=== PATIENT | female | born 1990 | race Caucasian/White ===

== ENCOUNTER 2016-07-19 21:02 | Emergency (ER) | payer OTHER ==
[~2016-07-19] VITALS: Ht 149.9 cm; Wt 100.0 kg
[~2016-07-19 21:02] MED LIST: FLUC150T48 PO; FLUT9.9S NS; IBUP-1827 PO; MEDR150D9 IM; ONDA4TAB9 PO; TRAM50TA2 PO
[2016-07-19 21:16] VITALS: BP 143/92; PULSE 92; RESP 16; O2SAT 97
--- NOTE | 2016-07-19 21:41 | ED.REPORT ---
HPI-General Illness Date of Service Jul 19, 2016 ED Provider: Everette Vivas MD The patient is a 26 year old female who presents to the ED seeking Tamiflu after being exposed to flu A. She reports that her three children have tested positive for flu A and were prescribed Tamiflu, however her insurance does not cover this and she presents today seeking Tamiflu for her and her children. Associated symptoms include fatigue, fever, nasal congestion, and nausea. She denies any other symptoms at this time. She has had her flu shot. Nursing Notes Stated Complaint: SYMPTONS OF INFLUENZA Chief Complaint: General Complaint Nursing Notes Reviewed: Yes Allergies: Coded Allergies: Penicillins (Verified Allergy, Unknown, 07/06/16) Sulfa (Sulfonamide Antibiotics) (Verified Allergy, Unknown, 07/06/16) latex (Verified Allergy, Unknown, 07/06/16) nitrofurantoin (Verified Allergy, Unknown, 07/06/16) phenazopyridine (Verified Allergy, Unknown, 12/21/15) Scheduled Fluconazole (Diflucan) 150 Mg Tablet 150 MG PO WEEKLY Medroxyprogesterone Acetate (Depo-Provera) 150 Mg/1 Ml Syringe 150 MG IM [id number] Scheduled PRN Fluticasone Propionate (Flonase Allergy Relief) 50 Mcg/Actuation [place].susp 2 SPRAYS NS DAILY PRN PRN allergies Ibuprofen (Ibuprofen) 600 Mg Tablet 600 MG PO QID PRN PRN For Pain Ondansetron ODT (Zofran ODT) 4 Mg Tablet 4 MG PO Q4H PRN PRN For Nausea Tramadol (Tramadol) 50 Mg Tablet 50 MG PO Q4H PRN PRN For Pain General Time Seen by MD: 21:37 Chief Complaint Fever Hx Obtained From: Patient Arrived By: Walk-in Sudden in Onset?: No Onset Occurred: Yesterday Symptom Duration: Since onset Severity: Current: No pain currently Severity: Maximum: No pain Recent Healthcare: No recent doctor visit, No recent hospitalization Similar Sx Previous: No Past Medical History Patient History: Patient reports no known family medical history. 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 Jake at [facility] [employer] [employer] Alcohol Use: Denies alcohol use Drug Use: Denies drug use Other Social History: Good social support, Lives with children, Local resident Ambulatory Status Independent Review of Systems Full Review of Systems Constitutional: Reports: Fatigue, Fever Ears / Nose / Throat: Reports: Nasal congestion Respiratory: Denies: Shortness of breath, Wheezing GI: Reports: Nausea, Denies: Abdominal pain, Vomiting Complete sys rev & neg: except as marked. Physical Exam Vital Signs Vital Signs Date Time Temp Pulse Resp B/P Pulse Ox O2 Delivery O2 Flow Rate FiO2 07/19/16 22:41 36.4 92 16 143/92 97 07/19/16 21:16 36.4 92 16 143/92 97 Initial VS: Reviewed Neck: Supple, Non-tender, Full range of motion Respiratory: Breath sounds normal, Clear to auscultation, No respiratory distress Cardiovascular: Regular rate & rhythm, Heart sounds normal, Intact distal pulses Abdomen / GI: Soft, Non-tender, No guarding, No rebound, No distention Extremities: Vascular intact, Neuro intact, No swelling, No tenderness Skin: Warm, Dry, No cyanosis Neurologic: Alert, Oriented, Nonfocal Psychiatric: Mood/affect normal, Behavior normal, Normal thought content General/Constitutional: Awake, Alert, No acute distress Head / Eyes: Atraumatic, Normocephalic, PERRL, EOMI ENT: Atraumatic, Mucous membranes moist Thick yellow nasal discharge Crusting about the nostrils Re-Eval/Medical Decision Med Decision/Clinical Course 26-year-old mother of three children with test positive influenza A. No risk factors for serious decompensation. Risk benefits alternatives of Tamiflu discusses some length and she is comfortable with routine supportive care. With children for routine care. Source of Hx: Old records Time of Eval: 22:07 Re-Evaluation/Progress Note: Met with patient. Reviewed history and symptoms. Discussed risks and benefits associated with Tamiflu, which the patient has elected to not pursue. Discussed diagnosis and plan for discharge. Follow-up instructions and RTER warnings given. The patient understands and agrees to the plan. All questions addressed. Counseled Regarding: Diagnosis, Need for follow-up, When/why to return to ED Discharge & Departure Primary Impression: Influenza A Disposition: Home Discharge Condition All VS Reviewed: Yes Condition: Stable Patient Instructions: Influenza (ED) Additional Instructions: Tamiflu offers very little in the way of reduction of the burden of influenza. You are likely do well, having received a shot in the first place. The mata features are to maintain hydration, take ibuprofen or senna medicine for aches and fever, and anticipate a seven day course of illness. Your nasal congestion may be helped by the use of Afrin at night only, and only for four nights consecutively. That will help to drain your sinuses. Running a vaporizer in her sleeping room is also helpful, to keep your secretions moist and your membranes from irritation. Follow-up with your doctor Referrals: Catarina Esteves MD (PCP) Scribe Attestation Portions of this note were transcribed by Demetrius Wang. I, Dr. Vivas, personally performed the history, physical exam, and medical decision-making; I reviewed and confirmed the accuracy of the information in the transcribed note. Signed by: Juani Mandel, 07/19/16 22:09. copies to: Catarina Esteves MD, Christopher W MD Jul 19, 2016 21:41 DEMETRIUS WANG Jul 19, 2016 22:08
[2016-07-19 22:41] VITALS: BP 143/92; PULSE 92; RESP 16; O2SAT 97
== END 2016-07-19 22:41 | disposition home or self-care (01) ==
LOC: SED 21:02
DX: J10.1 Influenza due to other identified influenza virus with other respiratory manifestations (principal); R11.0 Nausea; Z88.0 Allergy status to penicillin; Z88.2 Allergy status to sulfonamides; Z88.8 Allergy status to other drugs, medicaments and biological substances; Z91.040 Latex allergy status

== ENCOUNTER 2016-08-21 23:00 | Emergency (ER) | payer OTHER ==
[~2016-08-21] VITALS: Ht 149.9 cm; Wt 109.1 kg
[2016-08-21 23:02] VITALS: BP 130/80; PULSE 108; RESP 16; O2SAT 97
--- NOTE | 2016-08-21 23:21 | ED.REPORT ---
HPI-Trauma Minor / Fall Date of Service Aug 21, 2016 ED Provider: Naa Salas MD 26 y/o female presents to ED complaining of right sided rib pain after the patient fell four steps this evening. Patient reports that she was vacuuming when she fell down a stairway and landed on a hard wood floor on her right side. Her pain is exacerbated by movement and deep breath. She reports limited movement of her right arm due to pain. Patient denies any pain, numbness, or weakness in her arms or legs. Patient admits to hitting her head but denies losing consciousness after fall. However, she states that she feels dizzy and light headed if she stands up too quickly. Patient denies nausea, vomiting, visual changes, shortness of breath, or any other injuries. Nursing Notes Stated Complaint: R SIDE RIB,BACK PAIN Chief Complaint: Multiple Trauma/Fall Nursing Notes Reviewed: Yes Allergies: Coded Allergies: Penicillins (Verified Allergy, Unknown, 08/21/16) Sulfa (Sulfonamide Antibiotics) (Verified Allergy, Unknown, 08/21/16) latex (Verified Allergy, Unknown, 08/21/16) nitrofurantoin (Verified Allergy, Unknown, 08/21/16) phenazopyridine (Verified Allergy, Unknown, 08/21/16) Scheduled Fluconazole (Diflucan) 150 Mg Tablet 150 MG PO WEEKLY Medroxyprogesterone Acetate (Depo-Provera) 150 Mg/1 Ml Syringe 150 MG IM [id number] Scheduled PRN Fluticasone Propionate (Flonase Allergy Relief) 50 Mcg/Actuation [place].susp 2 SPRAYS NS DAILY PRN PRN allergies Hydrocodone-Acetaminophen 5-325 mg (Hydrocodone-Acetaminophen 5-325 mg) 1 Each Tablet 1 TABLET PO Q6H PRN PRN For Pain Ibuprofen (Ibuprofen) 600 Mg Tablet 600 MG PO QID PRN PRN For Pain Ondansetron ODT (Zofran ODT) 4 Mg Tablet 4 MG PO Q4H PRN PRN For Nausea Tramadol (Tramadol) 50 Mg Tablet 50 MG PO Q4H PRN PRN For Pain General Time Seen by : 23:21 Chief Complaint Fall, Other (right rib pain) Hx Obtained From: Patient Arrived By: Walk-in Onset Occurred: Just prior to arrival Symptom Duration: Since onset Caused by: Fall on ground Location: Chest (right ribs) Quality: Painful Severity: Current: Moderate Severity: Maximum: Moderate Exacerbated by: Movement, Deep breath Recent Healthcare: No recent doctor visit, No recent hospitalization Similar Sx Previous: No Past Medical History Patient History: Patient reports no known family medical history. 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 Cardiovascular: Reports: Chest pain (rib pain) GI: Denies: Nausea, Vomiting Physical Exam Initial Vital Signs Vital Signs (First) Date Time Temp Pulse Resp B/P Pulse Ox O2 Delivery O2 Flow Rate FiO2 08/21/16 23:02 36 108 16 130/80 97 Room Air Initial VS: Reviewed, Vital signs abnormal Head / Eyes: Atraumatic, Normocephalic, PERRL ENT: Mucous membranes moist, Conjunctiva normal, No scleral icterus Abdomen / GI: Soft, Non-tender, No guarding, No rebound, No distention Skin: Warm, Dry General/Constitutional: Awake, Alert, Well developed Neck: Atraumatic, No midline vertebral tend Respiratory / Chest: Atraumatic, Breath sounds NL, Breath sounds = bilat, No respiratory distress, No rales, No rhonchi, No wheezing Cardiovascular: Heart rate NL, Regular rhythm, Heart sounds NL, No gallop, No murmurs, No rubs Abdomen: Soft, Non-tender Trauma - Back Specific: Positive: Point tender thoracic... (Spine tender around mid T spine.), Rib tender R nondeformed (Right sided rib pain with palpation.) Upper Extremity / MS: Atraumatic, No deformity Lower Extremity / Pelvis / MS: Atraumatic, No deformity Neurologic: Oriented X3, Speech NL, No motor deficits, No sensory deficits, CN II - XII intact Interpretation & Diagnostics X-Ray Interpretation Xray Interpretation: IMPRESSION: No fracture to ribs. Study Performed: Ribs Xray Interpretation / Wet Read by: Wet read ED physician Xray Interpretation: IMPRESSION: No acute fracture. Study Performed: Thoracic Spine XRay Interpretation / Wet Read by: Wet read ED physician Re-Eval/Medical Decision Med Decision/Clinical Course Patient presents 2 days after trauma, symptoms are concerning for possible rib fracture. No obvious fracture seen on x-ray. She has had some paraspinal tenderness to her mid thoracic area, no abnormalities are seen on her x-ray. The patient states she hit her head but there is no loss of consciousness and she is neurologically intact, she is not a criteria for CT scan. The patient was treated symptomatically was feeling improved upon discharge. A partial list of differential diagnoses considered were intracranial hemorrhage, concussion, rib fracture, pneumothorax, thoracic spinal fracture, and hemothorax. Source of Hx: Old records Re-Evaluation/Progress : Time of Eval: 00:28 Patient Status: Condition improved Re-Evaluation/Progress Note: Explained Xray results and diagnosis to patient. Answered all patient questions. Patient understands and agrees with the plan to be discharged home. Discharge instructions and follow-up discussed. All questions were addressed. Return to the ED warnings given. Counseled Regarding: Diagnosis, Lab results, Need for follow-up, When/why to return to ED Discharge & Departure Impression: Primary Impression: Contusion of rib on right side Encounter type: initial encounter Qualified Code: S20.211A - Contusion of right front wall of thorax, initial encounter Additional Impression: Strain of thoracic spine Encounter type: initial encounter Qualified Code: S29.019A - Strain of muscle and tendon of unspecified wall of thorax, initial encounter Disposition: Home Discharge Condition All VS Reviewed: Yes Condition: Stable Patient Instructions: Contusion (ED) Additional Instructions: You have a right rib contusion and a strain to the spine. Use prescribed pain medication sparingly and feel free to also use ibuprofen to treat for pain. Avoid movements or lifting which exacerbates the pain. Follow up with you primary care physician in 1-2 weeks. Seek care for any new or concerning symptoms. Referrals: Catarina Esteves MD (PCP) Scribe Attestation Portions of this note were transcribed by Arden Upton and Deja Haines. I, Dr. Salas personally performed the history, physical exam and medical decision- making; I reviewed and confirmed the accuracy of the information in the transcribed note. Signed by: Arden Upton and Deja Haines, Mikalaibe, 08/22/2016 and 0121. copies to: Catarina Esteves MD, Jena M MD Aug 21, 2016 23:21 Arden Upton Aug 21, 2016 23:37 Deja Haines Aug 22, 2016 01:21
[2016-08-21] MEDS ORDERED: HYDROcodone-APAP 5-325 mg Tablet PO ONE (23:35)
[2016-08-22] MEDS ORDERED: HYDR-4003 PO (00:14)
[2016-08-22 00:50] VITALS: BP 121/71; PULSE 101; RESP 20; O2SAT 97
--- NOTE | 2016-08-22 08:34 | DRSVH ---
PROCEDURE: X-RAY RIGHT RIBS INCLUDEING PA CHEST, MINUMUM THREE VIEWS ([id number]) INDICATIONS: fall TECHNIQUE: 3 views of the right ribs were acquired, along with a single view chest. COMPARISON: None. FINDINGS: Surgical changes and devices: Cholecystectomy clips. Bones and chest wall: No fractures or dislocations. No suspicious bony lesions. Overlying soft tis sues appear unremarkable. Lungs and pleura: No pleural effusions or pneumothorax. Lungs appear clear. Mediastinum: Mediastinal contours appear normal. Heart size is normal. IMPRESSION: No displaced rib fractures. Dictated by: Reggie Beatty [facility] Interpreted: Ghazal Medina MD on 08/22/2016 at 8:21 Transcribed by: MARIAJOSE on 08/22/2016 at 8:34 Approved by: Ghazal Medina M.D. on 08/22/2016 at 9:02
--- NOTE | 2016-08-22 08:35 | DRSVH ---
PROCEDURE: X-RAY THORACIC SPINE, 2 VIEWS INDICATIONS: fall TECHNIQUE: 3 views of the thoracic spine were acquired. COMPARISON: None. FINDINGS: Bones: No fractures or dislocations. No suspicious bony lesions. 12 pairs of ribs are noted, and a ppear intact where visualized. Minimal S-shaped curvature. Soft tissues: No paravertebral stripe thickening. Cholecystectomy clips. IMPRESSION: No displaced fracture seen. If there is continued pain, followup exam or additional letitia ging such as MRI or CT could be performed for further assessment. Dictated by: Rgegie Beatty RRA Interpreted: Ghazal Medina MD on 08/22/2016 at 8:34 Transcribed by: MARIAJOSE on 08/22/2016 at 8:35 Approved by: Ghazal Medina M.D. on 08/22/2016 at 9:02
== END 2016-08-22 00:51 | disposition home or self-care (01) ==
LOC: SED 23:00
DX: S29.012A Strain of muscle and tendon of back wall of thorax, initial encounter (principal); S20.211A Contusion of right front wall of thorax, initial encounter; W10.9XXA Fall (on) (from) unspecified stairs and steps, initial encounter; Y93.E3 Activity, vacuuming; Y92.89 Other specified places as the place of occurrence of the external cause; Y99.8 Other external cause status; M79.601 Pain in right arm; Z88.0 Allergy status to penicillin; Z88.1 Allergy status to other antibiotic agents; Z88.2 Allergy status to sulfonamides; Z88.6 Allergy status to analgesic agent; Z91.040 Latex allergy status

== ENCOUNTER 2016-09-24 19:54 | Emergency (ER) | payer OTHER ==
[~2016-09-24] VITALS: Ht 151.1 cm; Wt 110.0 kg
[~2016-09-24 19:54] MED LIST changes: +HYDR-4003 PO
[2016-09-24 20:06] VITALS: BP 159/100; PULSE 94; RESP 16; O2SAT 98
--- NOTE | 2016-09-24 21:57 | ED.REPORT ---
HPI-Trauma Minor / Fall Date of Service Sep 24, 2016 ED Provider: Yared Hilton MD Lety Ruiz is a 26 year old woman with a PMH of HTN and obesity who presents with a 1 day history of L shoulder pain radiating up into the neck. She cannot recall a specific injury or trauma to the afflicted limb. She relates that she awoke this morning with pain and discomfort in the shoulder, and then was in the park with her daughter this afternoon and caught her falling from a jungle gym and felt severe pain in her shoulder. She further complains of greatly reduced ROM. Nursing Notes Stated Complaint: HURT SHOULDER,SEVERE PAIN Chief Complaint: Extremity Trauma Nursing Notes Reviewed: Yes Allergies: Coded Allergies: Penicillins (Verified Allergy, Unknown, 09/24/16) Sulfa (Sulfonamide Antibiotics) (Verified Allergy, Unknown, 09/24/16) latex (Verified Allergy, Unknown, 09/24/16) nitrofurantoin (Verified Allergy, Unknown, 09/24/16) phenazopyridine (Verified Allergy, Unknown, 09/24/16) Scheduled Fluconazole (Diflucan) 150 Mg Tablet 150 MG PO WEEKLY Medroxyprogesterone Acetate (Depo-Provera) 150 Mg/1 Ml Syringe 150 MG IM [id number] Scheduled PRN Cyclobenzaprine (Cyclobenzaprine) 5 Mg Tablet 5 MG PO TID PRN PRN Spasm Fluticasone Propionate (Flonase Allergy Relief) 50 Mcg/Actuation [place].susp 2 SPRAYS NS DAILY PRN PRN allergies Hydrocodone-Acetaminophen 5-325 mg (Hydrocodone-Acetaminophen 5-325 mg) 1 Each Tablet 1 TABLET PO Q6H PRN PRN For Pain Ibuprofen (Ibuprofen) 600 Mg Tablet 600 MG PO QID PRN PRN For Pain Ondansetron ODT (Zofran ODT) 4 Mg Tablet 4 MG PO Q4H PRN PRN For Nausea Tramadol (Tramadol) 50 Mg Tablet 50 MG PO Q4H PRN PRN For Pain General Time Seen by MD: 22:00 Chief Complaint Extremity pain Hx Obtained From: Patient Onset Occurred: 9 - 12 hours ago Symptom Duration: Since onset Location: Shoulder left Quality: Aching, Sharp Severity: Current: Moderate Severity: Maximum: Severe Recent Healthcare: Recent doctor visit Similar Sx Previous: No Past Medical History Patient History: Patient reports no known family medical history. 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 [employer] Alcohol Use: Denies alcohol use Drug Use: Denies drug use Other Social History: Good social support, Lives with children, Local resident Ambulatory Status Independent Review of Systems Musculoskeletal: Reports: Extremity pain, Joint pain Physical Exam Gen: A/O x3 pleasant cooperative obese woman in mild acute distress secondary to L shoulder pain Neck: Tender to palpation along SCM, Limited rotation to the left, no thyromegally HEENT: PERRL, EOMI, no scleral icterus, no conjunctival pallor CV: RRR, very slight diastolic murmur best heard at right sternal border Resp: Lungs CTA BL, no wheezing rales or rhonchi Abdomen: Obese, soft, non tender Extr: Greatly reduced ROM of L shoulder with 15 degrees of abduction, 30 degrees or flexion, very little internal rotation, tender to palpation along superior margin of deltoid, at bicipital tendon insertion, and along suprascapular ridge. Patient unable to do special testing due to pain and reduced ROM, no cyanosis clubbing or edema, neurovascularly intract Neuro: CN 2-12 grossly intact, no focal neurologic deficit. Initial Vital Signs Vital Signs (First) Date Time Temp Pulse Resp B/P Pulse Ox O2 Delivery O2 Flow Rate FiO2 09/24/16 20:06 37.1 94 16 159/100 98 Room Air Initial VS: Reviewed, Vital signs abnormal Re-Eval/Medical Decision Med Decision/Clinical Course Patient's ECG unremarkable, pain appears to be musculoskeletal in origin. Very limited ROM and tenderness to palpation at multiple soft tissue structures. Patient unable to complete specialized testing due to pain and reduced ROM. Given Toradol for pain 30 mg x2 plus 10 mg of Cyclobenziprine which improved symptoms. Patient was given follow up instructions and return precautions prior to DC. APRYL report consulted which showed minimal opiate history. Counseled Regarding: Diagnosis, Need for follow-up, When/why to return to ED Discharge & Departure Shift Change Sign-Out Patient Care Transferred: No Discussed Complaint(s): Yes Imaging Studies: Imaging discussed Response to Therapy: Improved Impression: Primary Impression: Left shoulder strain Encounter type: initial encounter Qualified Code: S46.912A - Strain of unspecified muscle, fascia and tendon at shoulder and upper arm level, left arm , initial encounter Disposition: Home Discharge Condition All VS Reviewed: Yes Condition: Stable Patient Instructions: Shoulder Sprain (ED) Additional Instructions: You have most likely strained one of the muscular structures in your shoulder, at this time in the acute phase of the injury we cannot definitively identify exactly where your injury occurred. We suggest using ice and or heat and ibuprofen or Motrin for pain. You should follow up with your primary care provider for further evaluation if the pain fails to improve over the course of the week. Referrals: Catarina Esteves MD (PCP) Attending Statement The patient was seen and examined together with Dr. Kentrell Boyce and I agree with the history, exam and plan as outlined in the note above. copies to: Catarina Esteves MD, David E DO Sep 24, 2016 21:57 Yared Hilton MD Sep 25, 2016 03:42
[2016-09-24] MEDS ORDERED: CYCL5TAB PO (23:21)
[2016-09-24] MEDS ORDERED: _HYDROcodone/APAP 5-325 mg Tablet PO PRN (23:25)
[2016-09-24] MEDS ORDERED: HYDROcodone-APAP 5-325 mg Tablet PO ONE (23:25)
[2016-09-25 00:04] VITALS: BP 136/86; PULSE 92; RESP 20; O2SAT 98
== END 2016-09-25 00:05 | disposition home or self-care (01) ==
LOC: SED 19:54
DX: S46.912A Strain of unspecified muscle, fascia and tendon at shoulder and upper arm level, left arm, initial encounter (principal); X50.9XXA Other and unspecified overexertion or strenuous movements or postures, initial encounter; Y93.89 Activity, other specified; Y92.89 Other specified places as the place of occurrence of the external cause; Y99.8 Other external cause status; Z88.0 Allergy status to penicillin; Z88.2 Allergy status to sulfonamides; Z88.8 Allergy status to other drugs, medicaments and biological substances; Z91.040 Latex allergy status
CPT/HCPCS: 93005; 96372; 99284; J1885

== ENCOUNTER 2016-11-06 22:12 | Emergency (ER) | payer OTHER ==
[~2016-11-06] VITALS: Ht 149.9 cm; Wt 113.4 kg
[~2016-11-06 22:12] MED LIST changes: +CYCL5TAB PO
[2016-11-06 22:14] VITALS: BP 162/109; PULSE 88; RESP 16; O2SAT 96
--- NOTE | 2016-11-06 23:19 | ED.REPORT ---
HPI-Extremity Problem Upper Date of Service November 06, 2016 ED Provider: Camden Munguia MD A 26 year old female with a medical history including DVT and left knee Baltazar's cyst presents to the ED with left second finger pain onset one week ago. The patient "jammed" this finger months ago, an injury which was initially painful but eventually healed. Now the pain has returned along with generalized swelling and a hard "bump" on her middle phalanx. The patient denies other symptoms. Nursing Notes Stated Complaint: LUMP LEFT INDEX FINGER Chief Complaint: Extremity Trauma Nursing Notes Reviewed: Yes ([employer], [employer] not reconciled) Allergies: Coded Allergies: Penicillins (Verified Allergy, Unknown, 11/06/16) Sulfa (Sulfonamide Antibiotics) (Verified Allergy, Unknown, 11/06/16) latex (Verified Allergy, Unknown, 11/06/16) nitrofurantoin (Verified Allergy, Unknown, 11/06/16) phenazopyridine (Verified Allergy, Unknown, 11/06/16) Scheduled Fluconazole (Diflucan) 150 Mg Tablet 150 MG PO WEEKLY Medroxyprogesterone Acetate (Depo-Provera) 150 Mg/1 Ml Syringe 150 MG IM [id number] Scheduled PRN Cyclobenzaprine (Cyclobenzaprine) 5 Mg Tablet 5 MG PO TID PRN PRN Spasm Fluticasone Propionate (Flonase Allergy Relief) 50 Mcg/Actuation [place].susp 2 SPRAYS NS DAILY PRN PRN allergies Hydrocodone-Acetaminophen 5-325 mg (Hydrocodone-Acetaminophen 5-325 mg) 1 Each Tablet 1 TABLET PO Q6H PRN PRN For Pain Hydrocodone-Acetaminophen 5-325 mg (Hydrocodone-Acetaminophen 5-325 mg) 1 Each Tablet 1-2 TABLET PO Q6H PRN PRN For Pain Ibuprofen (Ibuprofen) 600 Mg Tablet 600 MG PO QID PRN PRN For Pain Ondansetron ODT (Zofran ODT) 4 Mg Tablet 4 MG PO Q4H PRN PRN For Nausea Tramadol (Tramadol) 50 Mg Tablet 50 MG PO Q4H PRN PRN For Pain General Time Seen by MD: 23:17 Chief Complaint Finger injury left 2 Hx Obtained From: Patient Arrived By: Walk-in Onset Occurred: 1 week ago (Intial injury months ago) Symptom Duration: Since onset Location: : Finger left 2 Quality: Painful Severity: Current: Moderate Severity: Maximum: Moderate Pertinent Negative: Relieved by nothing Immunizations: Tetanus up to date Recent Healthcare: No recent doctor visit Past Medical History Patient History: Patient reports no known family medical history. 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 Respiratory: Denies: Non-productive cough, Shortness of breath GI: Denies: Diarrhea, Vomiting Physical Exam Physical Exam Notes: f Initial Vital Signs Vital Signs (First) Date Time Temp Pulse Resp B/P Pulse Ox O2 Delivery O2 Flow Rate FiO2 11/06/16 22:14 36.6 88 16 162/109 96 Room Air Initial VS: Reviewed, Vital signs normal Head / Eyes: Atraumatic, Normocephalic ENT: Conjunctiva normal, No scleral icterus Neck: Supple, Full range of motion Respiratory: No respiratory distress Skin: Warm, Dry Neurologic: Alert, Oriented, Nonfocal Psychiatric: Mood/affect normal, Behavior normal, Normal thought content General/Constitutional: Awake, Alert Wrist / Hand: Neurologic intact, Vascular intact, Tendon function NL Finger Exam : Finger Exam: Positive: Ecchymosis present, Finger name... (L index), Swelling present... (Mild, more pronounced around DIP joint), Negative: Warmth present Good cap refill No signs of infection or cellulitis Firmness on lateral aspect of left index finger that could be an early developing ganglion cyst but exam findings are not definitive Passive ROM of left index finger normal Flexion of left index finger limited due to swelling Normal extension of left index finger Normal flexion of profundus and superficialis without tendon injury Interpretation & Diagnostics X-Ray Interpretation Xray Interpretation: No fracture Study Performed: Fingers, 2 View X-Ray Ordered: Hand left Interpretation / Wet Read by: Wet read ED physician Re-Eval/Medical Decision Med Decision/Clinical Course This is a 26-year-old right-hand dominant female 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 This is swelling, and may be a lump, near the DIP joint of the left index finger. She denies numbness weakness paresthesias. She has had a previous injury to that hand, no surgical interventions previously. On exam she generally appears well. There is a little bit of swelling, even some ecchymosis seems to be mostly around the DIP joint, I do not impression much swelling around the PIP joint. There is intact flexion, intact extension, no weakness of the profundus and superficialis is evident. Plain radiographs are negative for fracture or avulsion injury. The intrinsics function appear intact. I cannot tell if there might be a small developing ganglion cyst at the level of the DIP joint, but it is not definitive on exam. At this point smelling measures are indicated. Epistaxis splint was provided. Some beer and pain medicines. The patient follow up with her PCP for management Source of Hx: Old records Re-Evaluation/Progress : Time of Eval: 23:34 Patient Status: Condition improved Re-Evaluation/Progress Note: Discussed with patient x-ray results, diagnosis, and plan for discharge. Follow-up and return to the ER instructions given. Patient agrees with plan for care and all questions were addressed. Differential Diagnosis: Negative: Avulsion injury, Cellulitis, Compartment syndrome, Deep vein thrombosis, Elbow fracture, Fracture, Gamekeepers thumb, Hematoma, Nail bed laceration, Open fracture Counseled Regarding: Diagnosis, Need for follow-up, When/why to return to ED Discharge & Departure Impression: Primary Impression: Injury of left index finger Encounter type: initial encounter Qualified Code: S69.92XA - Unspecified injury of left wrist, hand and finger(s), initial encounter Disposition: Home Discharge Condition All VS Reviewed: Yes Condition: Improved Additional Instructions: 1. No fracture, dislocation, or sublexation was appreciated on Xray indicating a soft tissue injury. 2. It is possible, but not definite, that you could be developing a small ganglion cyst at the DIP joint. There is no intervention available in the ED and the general approach is physical therapy and re-evaluation. If the area is swelling or enlarging further, MRI imaging may be indicated. 3. Use a stack splint for comfort. 4. Take ibuprofen 400-800mg three times a day for pain. 5. If needed for more severe pain take hydrocodone/APAP 5/325 1-2 tabs up to every 6-8 hours. Note: This medication contains narcotic and causes drowsiness , no driving for at least 4 hours after taking. Use sparingly. 6. Call tomorrow to schedule a follow up with Dr. Willson. Referrals: Braeden Willson MD (PCP) Scribe Attestation Portions of this note were transcribed by Karen Carlson. I, Dr. Munguia, personally performed the history, physical exam, and medical decision-making; I reviewed and confirmed the accuracy of the information in the transcribed note. Signed by: Juani Noel, 11/06/2016, 23:45 copies to: Braeden Willson MD, Matthew F MD November 06, 2016 23:19 KAREN CARLSON November 06, 2016 23:27
[2016-11-06] MEDS ORDERED: HYDROcodone-APAP 5-325 mg Tablet PO ONE (23:30)
[2016-11-06] MEDS ORDERED: HYDR-4003 PO (23:35)
[2016-11-07 00:27] VITALS: BP 150/90; PULSE 82; RESP 17; O2SAT 97
--- NOTE | 2016-11-07 08:54 | DRSVH ---
PROCEDURE: X-RAY FINGERS, TWO VIEWS INDICATIONS: Finger pain TECHNIQUE: AP hand, 2 views of the second finger(s) acquired. COMPARISON: None. FINDINGS: Bones: No fractures or dislocations. No suspicious bony lesions. Soft tissues: No suspicious soft tissue calcifications. Diffuse soft tissue swelling. IMPRESSION: No displaced fracture seen. If there is continued pain, followup exam or additional letitia ging such as MRI or CT could be performed for further assessment. Dictated by: Reggie Beatty RRA Interpreted: Josh Valentine MD on 11/07/2016 at 8:53 Transcribed by: GENESIS on 11/07/2016 at 8:54 Approved by: Josh Valentine M.D. on 11/07/2016 at 9:42
== END 2016-11-07 00:15 | disposition home or self-care (01) ==
LOC: SED 22:12
DX: S69.82XA Other specified injuries of left wrist, hand and finger(s), initial encounter (principal); W23.1XXA Caught, crushed, jammed, or pinched between stationary objects, initial encounter; Y93.89 Activity, other specified; Y92.89 Other specified places as the place of occurrence of the external cause; Y99.8 Other external cause status; Z88.0 Allergy status to penicillin; Z88.2 Allergy status to sulfonamides; Z88.8 Allergy status to other drugs, medicaments and biological substances; Z91.040 Latex allergy status

== ENCOUNTER 2017-01-27 19:56 | Emergency (ER) | payer OTHER ==
[~2017-01-27] VITALS: Ht 149.9 cm; Wt 100.0 kg
[2017-01-27 19:59] VITALS: BP 166/102; PULSE 94; RESP 18; O2SAT 97
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
[2017-01-27 22:18] LABS: BASOPHILS % (AUTO) 0.2 % (0-3); EOSINOPHILS % (AUTO) 2.3 % (0-5); MONOCYTES % (AUTO) 8.1 % (4-12); Mean Corpuscular Hemoglobin 27.2 pg (27.0-35.0); Mean Corpuscular Volume 80.1 fL (81-100); NEUTROPHILS % (AUTO) 64.5 % (40-74); Platelet Count 249 bil/L (150-400)
[2017-01-27 22:35] LABS: Magnesium 2.1 mg/dL (1.6-2.6)
[2017-01-27] MEDS ORDERED: CEPH-512 PO (23:15)
[2017-01-27 23:18] VITALS: BP 145/93; PULSE 79; RESP 18; O2SAT 95
== END 2017-01-27 23:18 | disposition home or self-care (01) ==
LOC: SED 19:56
DX: S39.81XA Other specified injuries of abdomen, initial encounter (principal); W50.1XXA Accidental kick by another person, initial encounter; Y93.89 Activity, other specified; Y92.89 Other specified places as the place of occurrence of the external cause; Y99.8 Other external cause status; N39.0 Urinary tract infection, site not specified; Z87.440 Personal history of urinary (tract) infections; Z98.890 Other specified postprocedural states; Z90.49 Acquired absence of other specified parts of digestive tract; Z88.0 Allergy status to penicillin; Z88.1 Allergy status to other antibiotic agents; Z88.2 Allergy status to sulfonamides; Z88.6 Allergy status to analgesic agent; Z91.040 Latex allergy status
CPT/HCPCS: 36415; 80053; 81025; 83690; 83735; 85025; 96372; 99284; J1885

== ENCOUNTER 2017-02-12 11:45 | Emergency (ER) | payer OTHER ==
[~2017-02-12] VITALS: Ht 149.9 cm; Wt 104.5 kg
[~2017-02-12 11:45] MED LIST changes: +CEPH-512 PO
[2017-02-12 11:52] VITALS: BP 142/87; PULSE 86; RESP 17; O2SAT 98
--- NOTE | 2017-02-12 12:02 | ED.REPORT ---
HPI-Preg Under 20 Weeks Date of Service Feb 12, 2017 ED Provider: Merced Ocasio History of Present Illness: LMP 7/3 small amount bright red bleeding this am. RH negative. deejay is primary care and OB. . Found out about 1 week ago she was . ongoing nausea 4th . denies sexual activity last evening. denies pain Nursing Notes Stated Complaint: POSS MISCARRIAGE Chief Complaint: Female Abdominal Pain Nursing Notes Reviewed: Yes Allergies: Coded Allergies: Penicillins (Verified Allergy, Unknown, 01/27/17) Sulfa (Sulfonamide Antibiotics) (Verified Allergy, Unknown, 01/27/17) latex (Verified Allergy, Unknown, 01/27/17) nitrofurantoin (Verified Allergy, Unknown, 01/27/17) phenazopyridine (Verified Allergy, Unknown, 01/27/17) Scheduled Cephalexin (Keflex) 500 Mg Capsule 500 MG PO QID Fluconazole (Diflucan) 150 Mg Tablet 150 MG PO WEEKLY Medroxyprogesterone Acetate (Depo-Provera) 150 Mg/1 Ml Syringe 150 MG IM [id number] Scheduled PRN Cyclobenzaprine (Cyclobenzaprine) 5 Mg Tablet 5 MG PO TID PRN PRN Spasm Fluticasone Propionate (Flonase Allergy Relief) 50 Mcg/Actuation [place].susp 2 SPRAYS NS DAILY PRN PRN allergies Hydrocodone-Acetaminophen 5-325 mg (Hydrocodone-Acetaminophen 5-325 mg) 1 Each Tablet 1 TABLET PO Q6H PRN PRN For Pain Hydrocodone-Acetaminophen 5-325 mg (Hydrocodone-Acetaminophen 5-325 mg) 1 Each Tablet 1-2 TABLET PO Q6H PRN PRN For Pain Ibuprofen (Ibuprofen) 600 Mg Tablet 600 MG PO QID PRN PRN For Pain Ondansetron ODT (Zofran ODT) 4 Mg Tablet 4 MG PO Q4H PRN PRN For Nausea Tramadol (Tramadol) 50 Mg Tablet 50 MG PO Q4H PRN PRN For Pain General Time Seen by Provider: 12:00 Chief Complaint Vaginal bleeding, Other (small amount of breight red bleeding which has now stopped) Hx Obtained From: Patient Past Medical History Patient History: Patient reports no known family medical history. 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[employer] Alcohol Use: Denies alcohol use Drug Use: Denies drug use Other Social History: Good social support, Lives with children, Local resident Occupation lives with partner Ambulatory Status Independent Review of Systems Basic Review of Systems ENT: Hearing NL, No pain, No nasal congestion, No pharyngeal pain Psychiatric: Normal thought content Physical Exam Initial Vital Signs Vital Signs (First) Date Time Temp Pulse Resp B/P Pulse Ox O2 Delivery O2 Flow Rate FiO2 02/12/17 11:52 37.2 86 17 142/87 98 Room Air Initial VS: Reviewed, Vital signs normal Head / Eyes: Atraumatic, Normocephalic, PERRL ENT: Mucous membranes moist, Conjunctiva normal, No scleral icterus Neck: Supple, Non-tender, Full range of motion Respiratory: Breath sounds normal, Clear to auscultation, No respiratory distress Cardiovascular: Regular rate & rhythm, Heart sounds normal, Intact distal pulses Back: No CVA tenderness Lymphatic: No lymphadenopathy Extremities: Vascular intact, Neuro intact, No swelling, No tenderness Skin: Warm, Dry, No cyanosis Neurologic: Alert, Oriented, Nonfocal Psychiatric: Mood/affect normal, Behavior normal, Normal thought content General/Constitutional: Awake, Alert, No acute distress, Well appearing, Well developed, Well hydrated, Well nourished, Cooperative, Not toxic appearing Appearance / Presentation: Positive: Obese, morbidly Abdomen: Atraumatic, Soft, Non-tender, McBurney's non-tender, No guarding, No rebound, BS normoactive, No distention Female Genitourinary: Patient refused exam (states every time she has an exam she gets an infection) : Patient refused exam Respiratory / Chest: Atraumatic, Breath sounds NL, Breath sounds = bilat, No respiratory distress, No rales, No rhonchi, No wheezing, No retractions, No stridor, No chest tenderness, No chest wall deformity Cardiovascular: Heart rate NL, Regular rhythm, Heart sounds NL, No gallop, No murmurs, No rubs Interpretation & Diagnostics Lab Results Interpretation Result Diagram: 02/12/17 1158 02/12/17 1158 Test 02/12/17 11:58 02/12/17 12:33 02/12/17 15:21 White Blood Count 10.2th/mm3 (3.8-10.1) Red Blood Count 4.73mil/mm3 (3.90-5.20) Hemoglobin 13.1g/dL (12.0-15.6) Hematocrit 38.4% (35.0-46.0) Mean Corpuscular Volume 81.2fL (81-100) Mean Corpuscular Hemoglobin 27.7pg (27.0-35.0) Mean Corpuscular Hemoglobin Concent 34.1% (32.0-37.0) Red Cell Distribution Width 14.1% (12.3-15.4) Platelet Count 255bil/L (150-400) Neutrophils (%) (Auto) 70.3% (40-74) Lymphocytes (%) (Auto) 19.5% (14-46) Monocytes (%) (Auto) 7.9% (4-12) Eosinophils (%) (Auto) 1.8% (0-5) Basophils (%) (Auto) 0.2% (0-3) Sodium Level 138mEq/L (134-144) Potassium Level 4.3mEq/L (3.5-5.2) Chloride Level 101mEq/L (97-108) Carbon Dioxide Level 20mmol/L (18-29) Blood Urea Nitrogen 7mg/dL (6-20) Creatinine 0.50mg/dL (0.57-1.00) Estimat Glomerular Filtration Rate 212mL/min (>59) Glucose Level 109mg/dL (60-99) Calcium Level 8.9mg/dL (8.5-10.1) Total Bilirubin 0.3mg/dL (0.0-1.2) Aspartate Amino Transf (AST/SGOT) 26U/L (0-50) Alanine Aminotransferase (ALT/SGPT) 36U/L (0-32) Alkaline Phosphatase 74U/L (25-150) Total Protein 7.0g/dL (6.4-8.4) Albumin 4.2g/dL (3.4-5.0) HCG Beta Subunit 1915mIU/mL Urine Color Bloody (YELLOW) Urine Appearance Cloudy (CLEAR,HAZY) Urine pH 6.0 (5.0-8.0) Urine Specific [place] 1.015 (1.003-1.035) Urine Protein 100mg/dL (NEG,TRACE) Urine Glucose (UA) Negativemg/dL (NEGATIVE) Urine Ketones Negativemg/dL (NEGATIVE) Urine Occult Blood Large (NEGATIVE) Urine Nitrite Negative (NEGATIVE) Urine Bilirubin Negative (NEGATIVE) Urine Urobilinogen Normalmg/dL (NORMAL) Urine Leukocyte Esterase Trace (NEGATIVE) Urine RBC Packed/hpf (0-2) Urine WBC 0-5/hpf (0-5) Urine Epithelial Cells Occasional/hpf (NONE-MOD) Urine Crystals None seen (NONE SEEN) Urine Bacteria None/hpf (NONE-FEW) Urine Hyaline Casts None/lpf (NONE) Urine Granular Casts None seen (NONE SEEN) Urine Waxy Casts None seen (NONE SEEN) Urine Red Blood Cell Casts None seen (NONE SEEN) Urine White Blood Cell Casts None seen (NONE SEEN) Urine Mucus None seen (None Seen) Urine Trichomonas None seen (NONE SEEN) Urine Yeast None (NONE SEEN) Urinalysis Comment None Urine Culture Reflexed Indicated US Focused OB PROCEDURE: US OB<14 WKS+OB TRANSVAG INDICATIONS: bleeding OUTSIDE/PRIOR DATING DATA: Last menstrual period (LMP): 01/06/17. First dating scan (date and location): 02/12/17, this study. Estimated date of delivery (SCOTTY) from first dating scan: 10/13/17, plus or -7 days, based on this study and measurement of the gestational sac only. TECHNIQUE: Real-time scanning was performed of the fetus and maternal pelvic organs, with image documentation. Endovaginal scanning was also performed to better visualize the fetus and maternal ovaries. COMPARISON: None. FINDINGS: Embryo: Not seen but the gestational sac in the endometrial space has a mean sac diameter of 5 mm that correlates with a gestational age estimate of 5 weeks 2 days, plus or -7 days Measurement variability in dating: +/- 4 weeks by LMP, +/- 7 days by mean sac diameter (use before 6 weeks gestation if crown-rump length not able to be measured), +/- 5 days by crown-rump length (up to 8 weeks 6 days gestation), +/- 7 days by crown-rump length (up to 13 weeks 6 days gestation). Maternal organs: Ovaries appear normal considering gestational status. Limited images through the kidneys demonstrate no hydronephrosis. IMPRESSION: Estimated 5 week 2 day gestational age with delivery date ejected to be centered on 10/13/17+ or -7 days assuming viable gestation. Followup anatomic survey at 22 weeks gestation is recommended. Dictated by: Dandre Cosby M.D. on 02/12/2017 at 13:55 Approved by: Dandre Cosby M.D. on 02/12/2017 at 13:57 Re-Eval/Medical Decision Med Decision/Clinical Course 26 year old female with episode of breight red vaginal bleeding this am that has since stopped. Patient denies pain. US does not provide any answers. No sign of etopic. US shows 5 week Discharge & Departure Primary Impression: Weeks of gestation: less than 8 weeks Qualified Code: Z3A.01 - Less than 8 weeks gestation of Additional Impressions: Vaginal bleeding Urinary tract infection Urinary tract infection type: acute cystitis Hematuria presence: with hematuria Qualified Code: N30.01 - Acute cystitis with hematuria Disposition: Home Patient Instructions: First Trimester (ED), First Trimester Vaginal Bleed (ED), (ED), Urinary Tract Infection in (ED) Additional Instructions: Your hormone is 1915. The ultrasound shows there is a sac but there is no heart beat. It is too early to tell if this will continue on or wether this is a pseudosac. Because your are RH negative you are being provided the mini rhogam. Please follow with Dr. Celaya in the next week or two to have a repeat HCG. This will help provide some answers. The urine does show sign of infection. Start keflex 500 mg in the am and pm for 7 days. Also vitamins should be started. Referrals: Braeden Willson MD (PCP) EDSupervising Provider for APC: Rishi Smith MD copies to: Braeden Willson MD, Sue ARNP Feb 12, 2017 12:02
[2017-02-12 12:15] LABS: BASOPHILS % (AUTO) 0.2 % (0-3); EOSINOPHILS % (AUTO) 1.8 % (0-5); MONOCYTES % (AUTO) 7.9 % (4-12); Mean Corpuscular Hemoglobin 27.7 pg (27.0-35.0); Mean Corpuscular Volume 81.2 fL (81-100); NEUTROPHILS % (AUTO) 70.3 % (40-74); Platelet Count 255 bil/L (150-400)
[2017-02-12] MEDS ORDERED: Rho(D) Immune Globulin 50 mCg Syringe IM ONE (13:40)
--- NOTE | 2017-02-12 13:59 | DRSVH ---
PROCEDURE: US OB<14 WKS+OB TRANSVAG INDICATIONS: bleeding OUTSIDE/PRIOR DATING DATA: Last menstrual period (LMP): 01/06/17. First dating scan (date and location): 02/12/17, this study. Estimated date of delivery (SCOTTY) from first dating scan: 10/13/17, plus or -7 days, based on this study and measurement of the gestational sac only. TECHNIQUE: Real-time scanning was performed of the fetus and maternal pelvic organs, with image documentation. Endovaginal scanning was also performed to better visualize the fetus and maternal ovaries. COMPARISON: None. FINDINGS: Embryo: Not seen but the gestational sac in the endometrial space has a mean sac diameter of 5 mm marina t correlates with a gestational age estimate of 5 weeks 2 days, plus or -7 days Measurement variability in dating: +/- 4 weeks by LMP, +/- 7 days by mean sac diameter (use before 6 weeks gestation if crown-rump length not able to be measured), +/- 5 days by crown-rump length (up t o 8 weeks 6 days gestation), +/- 7 days by crown-rump length (up to 13 weeks 6 days gestation). Maternal organs: Ovaries appear normal considering gestational status. Limited images through the k idneys demonstrate no hydronephrosis. IMPRESSION: Estimated 5 week 2 day gestational age with delivery date ejected to be centered on 8+ or -7 days assuming viable gestation. Followup anatomic survey at 22 weeks gestation is rec ommended. Dictated by: Dandre Cosby M.D. on 02/12/2017 at 13:55 Approved by: Dandre Cosby M.D. on 02/12/2017 at 13:57
[2017-02-12 14:44] VITALS: BP 185/98; PULSE 98; RESP 20; O2SAT 99
[2017-02-12 15:35] LABS: APPEARANCE,URINE CLOUDY (CLEAR,HAZY); COLOR,URINE BLOODY (YELLOW)
[2017-02-12 15:36] LABS: OCCULT BLOOD,URINE LARGE (NEGATIVE); UROBILINOGEN,URINE NORMAL (NORMAL)
== END 2017-02-12 14:30 | disposition home or self-care (01) ==
LOC: SED 11:45
DX: O20.8 Other hemorrhage in early pregnancy (principal); O23.11 Infections of bladder in pregnancy, first trimester; Z87.440 Personal history of urinary (tract) infections; Z3A.01 Less than 8 weeks gestation of pregnancy; Z86.718 Personal history of other venous thrombosis and embolism; Z90.49 Acquired absence of other specified parts of digestive tract; Z91.040 Latex allergy status; Z88.2 Allergy status to sulfonamides; Z88.8 Allergy status to other drugs, medicaments and biological substances; Z88.0 Allergy status to penicillin
CPT/HCPCS: 36415; 76801; 76817; 80053; 81000; 81025; 84702; 85025; 87086; 87088; 87491; 87591; 96372; 99285; J2788

== ENCOUNTER 2017-02-17 01:36 | Emergency (ER) | payer OTHER ==
[~2017-02-17] VITALS: Ht 149.9 cm; Wt 109.1 kg
[2017-02-17 01:40] VITALS: BP 175/106; RESP 18; O2SAT 96
--- NOTE | 2017-02-17 01:45 | ED.REPORT ---
HPI-Ear Pain/Problem/FB Date of Service Feb 17, 2017 ED Provider: Dr. Mahmood Pt is a 26 year old female who is 3 weeks with a hx of ear infections presenting to the ED complaining of pain to her right ear onset 4 days ago. She also reports some drainage and fever. She states that this feels similar to her previous episodes of ear infections. Denies nausea, vomiting, diarrhea, or SOB. Nursing Notes Stated Complaint: EAR PAIN Chief Complaint: ENT & Mouth Nursing Notes Reviewed: Yes Allergies: Coded Allergies: Penicillins (Verified Allergy, Unknown, 02/17/17) Sulfa (Sulfonamide Antibiotics) (Verified Allergy, Unknown, 02/17/17) latex (Verified Allergy, Unknown, 02/17/17) nitrofurantoin (Verified Allergy, Unknown, 02/17/17) phenazopyridine (Verified Allergy, Unknown, 02/17/17) Scheduled Cephalexin (Keflex) 500 Mg Capsule 500 MG PO QID Fluconazole (Diflucan) 150 Mg Tablet 150 MG PO WEEKLY Medroxyprogesterone Acetate (Depo-Provera) 150 Mg/1 Ml Syringe 150 MG IM [id number] Scheduled PRN Cyclobenzaprine (Cyclobenzaprine) 5 Mg Tablet 5 MG PO TID PRN PRN Spasm Fluticasone Propionate (Flonase Allergy Relief) 50 Mcg/Actuation [place].susp 2 SPRAYS NS DAILY PRN PRN allergies Hydrocodone-Acetaminophen 5-325 mg (Hydrocodone-Acetaminophen 5-325 mg) 1 Each Tablet 1 TABLET PO Q6H PRN PRN For Pain Hydrocodone-Acetaminophen 5-325 mg (Hydrocodone-Acetaminophen 5-325 mg) 1 Each Tablet 1-2 TABLET PO Q6H PRN PRN For Pain Ibuprofen (Ibuprofen) 600 Mg Tablet 600 MG PO QID PRN PRN For Pain Ondansetron ODT (Zofran ODT) 4 Mg Tablet 4 MG PO Q4H PRN PRN For Nausea Tramadol (Tramadol) 50 Mg Tablet 50 MG PO Q4H PRN PRN For Pain General Time Seen by MD: 01:44 Chief Complaint Ear problem right Hx Obtained From: Patient Arrived By: Walk-in Onset Occurred: 4 days ago Symptom Duration: Since onset Quality: Painful Severity: Current: Moderate Severity: Maximum: Severe Recent Healthcare: No recent doctor visit, No recent hospitalization Similar Sx Previous: Yes Past Medical History Patient History: Patient reports no known family medical history. 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 Additional Review of Systems Respiratory: Denies: Shortness of breath GI: Denies: Diarrhea, Nausea, Vomiting Physical Exam Initial Vital Signs Vital Signs (First) Date Time Temp Pulse Resp B/P Pulse Ox O2 Delivery O2 Flow Rate FiO2 02/17/17 01:40 36.2 69 18 175/106 96 Room Air Initial VS: Reviewed Head / Eyes: Atraumatic, Normocephalic, PERRL Neck: Full range of motion Respiratory: No respiratory distress Abdomen / GI: Soft, Non-tender, No guarding, No rebound, No distention Extremities: Vascular intact, Neuro intact, No swelling, No tenderness Skin: Warm, Dry, No cyanosis Neurologic: Alert, Oriented, Nonfocal Psychiatric: Mood/affect normal, Behavior normal, Normal thought content General/Constitutional: Awake, Alert, No acute distress ENT: Atraumatic, Airway patent, Mucous membranes moist, Pharynx NL Right Ear / Mastoid: Positive: Tympanic membrane red Re-Eval/Medical Decision Med Decision/Clinical Course Healthy 26-year-old female with a right-sided purulent otitis media. Eardrum is red and bulging with an effusion. She has significant pain. She is so we will treat with Zithromax. She has a penicillin allergy. Short course of [place] provided for pain. Routine opiate warnings given. Close outpatient follow-up recommended. Re-Evaluation/Progress : Time of Eval: 02:05 Patient Status: Condition improved Re-Evaluation/Progress Note: Discussed plan for discharge. Pt understands and agrees with plan. Counseled Regarding: Diagnosis, Lab results, Need for follow-up, When/why to return to ED Discharge & Departure Primary Impression: Otitis media Otitis media type: suppurative Laterality: right Chronicity: acute Recurrence: recurrent Spontaneous tympanic membrane rupture: without spontaneous rupture Qualified Code: H66.004 - Acute suppurative otitis media without spontaneous rupture of ear drum, recurrent, right ear Disposition: Home Discharge Condition All VS Reviewed: Yes Condition: Improved Patient Instructions: Otitis Media (ED) Additional Instructions: You have an ear infection. Take Zithromax daily for 4 days. Take [place] every 6 hours as directed for pain. Do not drink alcohol, drive or take Acetaminophen while taking the [place]. Take the [place] sparingly as this is an opiate so it can be habit forming. Follow up with your primary care doctor in the next few days. Return to the ER if you develop any new or worsening symptoms. Referrals: Braeden Willson MD (PCP) Juani Attestation Portions of this note were transcribed by Mercedez Islas. I, Dr. Mahmood personally performed the history, physical exam and medical decision-making; I reviewed and confirmed the accuracy of the information in the transcribed note. Signed by : Juani Alexander, 02/17/2017. copies to: Braeden Willson MD, Todd P DO Feb 17, 2017 01:45 MERCEDEZ ISLAS Feb 17, 2017 02:02
[2017-02-17] MEDS ORDERED: HYDROcodone-APAP 5-325 mg Tablet PO ONE (02:00)
== END 2017-02-17 02:16 | disposition home or self-care (01) ==
LOC: SED 01:36
DX: O99.89 Other specified diseases and conditions complicating pregnancy, childbirth and the puerperium (principal); H66.004 Acute suppurative otitis media without spontaneous rupture of ear drum, recurrent, right ear; Z3A.01 Less than 8 weeks gestation of pregnancy; Z87.440 Personal history of urinary (tract) infections; Z86.718 Personal history of other venous thrombosis and embolism; Z88.0 Allergy status to penicillin; Z88.2 Allergy status to sulfonamides; Z91.040 Latex allergy status; Z88.8 Allergy status to other drugs, medicaments and biological substances